=== PATIENT | female | born 1995 | race African-American/Black ===

== ENCOUNTER 2018-10-27 18:28 | Emergency (ER) | payer BC, OTHER ==
[~2018-10-27] VITALS: Ht 160 cm; Wt 58.8 kg
[2018-10-27] MEDS ORDERED: IBUPROFEN 600 MG TAB PO ONE (21:15)
[2018-10-27] MEDS ORDERED: ONDANSETRON 4 MG ORAL DISINTEGRATING TAB (Q0162 PER 1MG) PO ONE (21:15)
[2018-10-27] MEDS ORDERED: ACETAMINOPHEN 500 MG TAB PO ONE (21:15)
[2018-10-27 22:26] VITALS: BP 101/57
== END 2018-10-27 22:33 | disposition home or self-care (01) ==
LOC: M ED 20:45
DX: G44.209 Tension-type headache, unspecified, not intractable (principal)
CPT/HCPCS: 84702; 99283; Q0162

== ENCOUNTER 2019-06-07 18:47 | Emergency (ER) | payer BC ==
[~2019-06-07] VITALS: Ht 160 cm; Wt 61.4 kg
[2019-06-07 22:25] LABS: APPEARANCE, URINE HAZY (CLEAR); BACTERIA, URINE AUTO NEGATIVE (NEGATIVE); BILIRUBIN, URINE AUTO NEGATIVE (NEGATIVE); BLOOD, URINE BLOOD NEGATIVE (NEGATIVE); COLOR, URINE YELLOW (YELLOW); GLUCOSE, URINE (UA) AUTO NEGATIVE (NEGATIVE); KETONE, URINE AUTO TRACE mg/dL (NEGATIVE); LEUKOCYTE ESTERASE, URINE AUTO NEGATIVE (NEGATIVE); MUCUS, URINE SMALL (NEGATIVE); NITRITE, URINE AUTO NEGATIVE (NEGATIVE); PROTEIN, URINE AUTO NEGATIVE (NEGATIVE); RBC, URINE AUTO 1 /HPF (0-3); SPECIFIC GRAVITY URINE AUTO 1.018 (1.002-1.035); SQUAMOUS EPITHELIAL CELL UR AU 5 /HPF (0-6); UROBILINOGEN, URINE AUTO 0.2 mg/dL (0.0-2.0); WBC, URINE AUTO 1 /HPF (0-3)
[2019-06-07 22:48] VITALS: BP 130/80
[2019-06-07] MEDS ORDERED: FLAG500T PO (23:22)
[2019-06-07] MEDS ORDERED: metroNIDAZOLE (FLAGYL) 500 MG TAB PO ONE (23:30)
[2019-06-08 00:01] LABS: CHLAMYDIA DNA AMPLIFICATION NEGATIVE (NEGATIVE); GC DNA AMPLIFICATION NEGATIVE (NEGATIVE)
[2019-06-11 08:12] LABS: HSV-1 DNA Negative (Negative); HSV-2 DNA Negative (Negative)
== END 2019-06-07 23:29 | disposition home or self-care (01) ==
LOC: M ED 18:47
DX: N76.0 Acute vaginitis (principal); Z20.2 Contact with and (suspected) exposure to infections with a predominantly sexual mode of transmission

== ENCOUNTER → 2019-11-09 | Outpatient (REF) | payer BC ==
[~2019-11-09] MED LIST: FLAG500T PO
== END ==
LOC: M LAB REF 15:52
PROVIDERS: ATTEND Physician Assistant
DX: J02.9 Acute pharyngitis, unspecified (principal)